=== PATIENT | female | born 1965 | race Caucasian/White ===

== ENCOUNTER 2024-06-17 11:16 | Observation (INO) | payer BC, OTHER ==
--- NOTE | 2024-06-17 12:08 | ERPHSYRPT ---
- History of Present Illness Time Seen by Provider: 06/17/24 12:13 Source: patient Exam Limitations: no limitations Patient Subjective Stated Complaint: pt c/o of blood coming from her rectum w/o a bowel movement, some mild cramping Triage Nursing Assessment: Pt brought to the ER by her , vitals wnl, rates pain/pressure as 3/10 in her lower abdomen, pulses normal, skin n/w/d, no difficulty breathing, doesn't appear to be in any distress Physician History: 58-year-old female presents to emergency department for evaluation of bright red blood per rectum. Patient went to have a bowel movement and she reports bright red blood no stool. Associated symptoms include lower abdominal cramping rated 3 out of 10. Patient declined pain medication. No trauma no fever no nausea no vomiting no rash. Patient resting comfortably no active bleeding at this time. at bedside. They voiced no other complaints or concerns at this time. Patient's last colonoscopy was proximately 2 years ago Portions of this note were created with voice recognition technology. There may be grammatical, spelling, punctuation or sound alike errors Timing/Duration: today Severity: moderate Modifying Factors: Improves With: nothing Associated Symptoms: denies symptoms Allergies/Adverse Reactions: cephalexin [From Keflex] Allergy (Verified 06/17/24 11:52) naproxen Allergy (Verified 06/17/24 11:52) Penicillins Allergy (Verified 06/17/24 11:52) Home Medications: Lansoprazole 30 mg PO DAILY 06/17/24 [History] Levothyroxine Sodium 75 Mcg [Synthroid 75 Mcg] 75 mcg PO DAILY 06/17/24 [History] Montelukast Sodium 10 mg [Singulair 10 MG] 10 mg PO DAILY 06/17/24 [History] Hx Influenza Vaccination/Date Given: No Hx Pneumococcal Vaccination/Date Given: No Travel Risk - International Travel Have you traveled outside of the country in past 3 weeks: No - Emerging Infectious Disease Are you exhibiting symptoms associated with any current EIDs: Yes Symptoms: Abdominal Pain - Review of Systems Constitutional: No Symptoms, No Fever, No Chills Eyes: No Symptoms Ears, Nose, & Throat: No Symptoms Respiratory: No Symptoms, No Cough, No Dyspnea Cardiac: No Symptoms, No Chest Pain, No Edema, No Syncope Abdominal/Gastrointestinal: No Symptoms, No Abdominal Pain, No Nausea, No Vomiting, No Diarrhea Genitourinary Symptoms: No Symptoms, No Dysuria Musculoskeletal: No Symptoms, No Back Pain, No Neck Pain Skin: No Symptoms, No Rash Neurological: No Symptoms, No Dizziness, No Focal Weakness, No Sensory Changes Psychological: No Symptoms Endocrine: No Symptoms Hematologic/Lymphatic: No Symptoms Immunological/Allergic: No Symptoms All Other Systems: Reviewed and Negative - Past Medical History Pertinent Past Medical History: Yes Respiratory History: Asthma Endocrine Medical History: Hypothyroidism Musculoskeletal History: Fractures Other Medical History: excema - Past Surgical History Past Surgical History: Yes Female Surgical History: Hysterectomy, Tubal Ligation - Social History Smoking Status: Never smoker Exposure to second hand smoke: No Drug Use: none - Social Determinants of Health Will the patient participate in the screening: Yes Do you worry about a steady place to live?: No Do you have any problems with any of the following?: No known problems In the past 12 months,have you had to go without utilities?: No Transportation Issues: No Has anyone in your support network made you feel unsafe?: No Have you or anyone in your house had to go without enough: No - Nursing Vital Signs Nursing Vital Signs: Initial Vital Signs Temperature 97.1 F 06/17/24 11:41 Pulse Rate 64 06/17/24 11:41 Blood Pressure 134/82 06/17/24 11:41 O2 Sat by Pulse Oximetry 97 06/17/24 11:41 Pain Scale Pain Intensity 3 - Physical Exam General Appearance: no apparent distress, alert Eye Exam: PERRL/EOMI, eyes nml inspection Ears, Nose, Throat Exam: normal ENT inspection, moist mucous membranes Neck Exam: normal inspection, full range of motion Respiratory Exam: normal breath sounds, lungs clear, airway intact, No respiratory distress Cardiovascular Exam: regular rate/rhythm, normal heart sounds, normal peripheral pulses Gastrointestinal/Abdomen Exam: soft, normal bowel sounds, tenderness (Tenderness to palpation left lower abdomen), No mass Back Exam: normal inspection, normal range of motion, No CVA tenderness, No vertebral tenderness Extremity Exam: normal inspection, normal range of motion, pelvis stable Neurologic Exam: alert, oriented x 3, cooperative, normal mood/affect, sensation nml, No motor deficits Skin Exam: normal color, warm, dry, No rash Lymphatic Exam: No adenopathy SpO2 Interpretation: normal SpO2: 97 O2 Delivery: Room Air - Course Nursing assessment & vital signs reviewed: Yes - CT Exams Abdomen/Pelvis CT Interpretation: Tele-radiologist Report (Sigmoid colitis with associated fat stranding) Ordered Tests: Active Orders 24 hr Category Date Time Status ABDOMEN AND PELVIS W CONTRAST [CT] Stat Exams 06/17/24 12:05 Completed CBC W DIFF Stat Lab 06/17/24 12:21 Completed CMP Stat Lab 06/17/24 12:21 Completed PROTIME WITH INR Stat Lab 06/17/24 15:07 Ordered PTT Stat Lab 06/17/24 15:07 Ordered UA W/RFX UR CULTURE Stat Lab 06/17/24 12:15 Completed Medication Summary Generic Name Dose Route Start Last Admin Trade Name Freq PRN Reason Stop Dose Admin Levofloxacin/Dextrose 500 mg in 100 mls @ 100 mls/hr 06/17/24 14:54 Levofloxacin 500mg/100ml D5w IV 06/17/24 15:53 STAT STA Metronidazole 500 mg in 100 mls @ 200 mls/hr 06/17/24 14:54 Flagyl 500 Mg Ivpb IV 06/17/24 15:23 STAT STA Discontinued Medications Generic Name Dose Route Start Last Admin Trade Name Freq PRN Reason Stop Dose Admin Metronidazole Confirm 06/17/24 15:01 Flagyl 500 Mg Ivpb Administered 06/17/24 15:02 Dose 500 mg in 100 mls @ ud IV .STK-MED ONE Pantoprazole Sodium 40 mg 06/17/24 14:55 Pantoprazole 40 Mg Vial IV 06/17/24 14:56 STAT ONE Pantoprazole Sodium Confirm 06/17/24 15:01 Pantoprazole 40 Mg Vial Administered 06/17/24 15:02 Dose 40 mg IV .STK-MED ONE Lab/Rad Data: Laboratory Result Diagrams 06/17/24 12:21 06/17/24 12:21 Laboratory Results 06/17/24 06/17/24 06/17/24 Range/Units 12:21 12:21 12:15 WBC 14.1 H (3.98-10.04) x10^3/uL RBC 5.03 (3.93-5.22) x10^6/uL Hgb 15.1 (11.2-15.7) g/dL Hct 44.0 (34.1-44.9) % MCV 87.5 (79.4-94.8) fL MCH 30.0 (25.6-32.2) pg MCHC 34.3 (32.2-35.5) g/dL RDW 12.4 (11.7-14.4) % Plt Count 242 (182-369) x10^3/uL MPV 12.2 (9.4-12.3) fL Gran % 66.1 (34.0-71.1) % Immature Gran % (Auto) 0.4 (0.001-0.429) % Nucleat RBC Rel Count 0.0 (0.00-0.2) % Eos # (Auto) 0.07 (0.04-0.36) x10^3/uL Immature Gran # (Auto) 0.05 H (0.001-0.031) x10^3u/L Absolute Lymphs (auto) 3.03 (1.18-3.74) x10^3/uL Absolute Monos (auto) 1.55 H (0.24-0.86) x10^3/uL Absolute Nucleated RBC 0.00 (0.00-0.012) x10^3u/L Lymphocytes % 21.5 (19.3-51.7) % Monocytes % 11.0 (4.7-12.5) % Eosinophils % 0.5 L (0.7-5.8) % Basophils % 0.5 (0.1-1.2) % Absolute Granulocytes 9.32 H (1.56-6.13) x10^3/uL Basophils # 0.07 (0.01-0.08) x10^3/uL Sodium 138 (135-145) mmol/L Potassium 3.6 (3.5-5.1) mmol/L Chloride 102 (98-107) mmol/L Carbon Dioxide 26 (22-30) mmol/L Anion Gap 12.8 (5-15) MEQ/L BUN 13 (7-17) mg/dL Creatinine 0.79 (0.52-1.04) mg/dL Estimated GFR 85.6 ML/MIN Glucose 93 (74-106) mg/dL Calcium 8.9 (8.4-10.2) mg/dL Total Bilirubin 1.30 (0.2-1.3) mg/dL AST 21 (14-36) U/L ALT 15 (0-35) U/L Alkaline Phosphatase 115 (38-126) U/L Serum Total Protein 7.3 (6.3-8.2) g/dL Albumin 4.4 (3.5-5.0) g/dL Urine Color Yellow (Yellow) Urine Appearance Clear (Clear) Urine pH 6.0 (4.6-8.0) Ur Specific [place] 1.010 (1.005-1.030) Urine Protein Negative (Negative) Urine Glucose (UA) Negative (Negative) mg/dL Urine Ketones Negative (Negative) Urine Blood Negative (Negative) Urine Nitrite Negative (Negative) Urine Bilirubin Negative (Negative) Urine Urobilinogen 0.2 (0.2) mg/dL Ur Leukocyte Esterase Negative (Negative) U Hyaline Cast (Auto) NONE SEEN (0-2) /LPF Urine Microscopic RBC 0-2 (0-5) /HPF Urine Microscopic WBC 0-2 (0-5) /HPF Ur Epithelial Cells Rare (None Seen) /HPF Urine Bacteria None Seen (None Seen) /HPF Urine Culture Reflexed NO (NO) Slides for Path Review YES - Progress Progress: improved Progress Note: 58-year-old female presents to our ED for evaluation of bright red blood per rectum. Physical exam reveals some lower abdominal tenderness. Patient declined pain medication. CT abdomen pelvis reveals a inflamed colon with associated fat stranding. Patient is allergic to penicillin. Levaquin and Flagyl ordered. Protonix administered as well. Due to the rectal bleeding patient will be admitted overnight for observation. Plan of care discussed with patient. She agrees to admission at [facility] for further evaluation and treatment. Portions of this note were created with voice recognition technology. There may be grammatical, spelling, punctuation or sound alike errors Complexity of problem addressed is moderate acute complicated. No critical care time. Complex of data reviewed and analyzed is extensive. Test ordered test reviewed results analyzed and correlated clinically with history and physical exam. Management discussed with hospitalist who accepts admission to observation at 3:02 PM. Risk of complication and or risk of morbidity/mortality of patient management is high. Patient requires hospitalization for further evaluation and treatment. Vital stable time spent admit patient approximately 15 minutes. Plan of care established for shared decision making. No social determinants of health present to impede follow-up. Portions of this note were created with voice recognition technology. There may be grammatical, spelling, punctuation or sound alike errors 06/17/24 15:03 Counseled pt/family regarding: lab results, diagnosis, rad results - Departure Departure Disposition: Observation Clinical Impression: Lung nodule, Sigmoid colitis, Rectal bleeding, Abdominal pain, Leukocytosis Condition: Stable Critical Care Time: No Referrals: DOCTOR,NO FAMILY [Primary Care Provider] - Follow up/PCP as directed
[2024-06-17 12:22] LABS: Appearance Clear (Clear); Bacteria None Seen /HPF (None Seen); Bilirubin Negative (Negative); Blood Negative (Negative); Epithelial Cells Rare /HPF (None Seen); Glucose, Urine Negative (Negative); Hyaline Casts NONE SEEN /LPF (0-2); Ketones Negative (Negative); Leukocyte Esterase Negative (Negative); Nitrite Negative (Negative); Protein,Urine Dip Negative (Negative); RBC 0-2 /HPF (0-5); Urobilinogen 0.2 mg/dL (0.2); WBC 0-2 /HPF (0-5)
[2024-06-17 12:34] LABS: Absolute Neutrophil Ct (ANC) 9.32 x10^3/uL (1.56-6.13); BASOPHIL % 0.5 % (0.1-1.2); Basophil (Absolute #) 0.07 x10^3/uL (0.01-0.08); Eosinophil % 0.5 % (0.7-5.8); Eosinophil (Absolute #) 0.07 x10^3/uL (0.04-0.36); Hemoglobin 15.1 g/dL (11.2-15.7); IMMATURE GRAN # 0.05 x10^3u/L (0.001-0.031); IMMATURE GRAN % 0.4 % (0.001-0.429); Lymphocyte (Absolute #) 3.03 x10^3/uL (1.18-3.74); Lymphocytes % 21.5 % (19.3-51.7); Mean Cell Volume 87.5 fL (79.4-94.8); Mean Corpuscular Hgb Concent. 34.3 g/dL (32.2-35.5); Mean Platelet Volume 12.2 fL (9.4-12.3); Monocyte (Absolute #) 1.55 x10^3/uL (0.24-0.86); Neutrophil % 66.1 % (34.0-71.1); Platelet Count 242 x10^3/uL (182-369); Red Blood Count 5.03 x10^6/uL (3.93-5.22); Red Cell Distribution Width 12.4 % (11.7-14.4); White Blood Count 14.1 x10^3/uL (3.98-10.04)
[2024-06-17 12:52] LABS: ALBUMIN 4.4 g/dL (3.5-5.0); ANION GAP 12.8 MEQ/L (5-15); BILIRUBIN,TOTAL 1.3 mg/dL (0.2-1.3); Calcium 8.9 mg/dL (8.4-10.2); Creatinine 1 0.79 mg/dL (0.52-1.04); EST GLOMERULAR FILTRATION RATE 85.6 ML/MIN; Potassium 3.6 mmol/L (3.5-5.1); Total Protein 7.3 g/dL (6.3-8.2)
[2024-06-17 14:04] LABS: Slide Review 1 YES
--- NOTE | 2024-06-17 14:32 | XRAY ---
Indication: Abdominal pain. Multiple contiguous axial images obtained through the abdomen and pelvis using 80 cc Isovue 370 contrast. Comparison: None Lung bases clear of infiltrate or effusion. Indeterminant 5 mm subpleural right middle lobe noncalcified nodule. Heart not enlarged. Noncontrasted stomach and bowel loops appear nonobstructed with normal appendix. Mild diffuse scattered colonic fecal debris. Mid sigmoid demonstrates focal mild circumferential wall thickening with stranding favoring inflammatory process such as colitis. Mass not completely excluded. Previous hysterectomy. No free fluid/air. Remaining liver, gallbladder, pancreas, spleen, adrenal glands, kidneys, ureters, and bladder are unremarkable. Minimal aortic calcifications. No AAA or pathologic retroperitoneal lymphadenopathy. Osseous structures intact with minimal degenerative changes throughout thoracolumbar spine and mild dextroscoliosis centered at L1. Impression: 1. Focal bowel wall thickening mid sigmoid colon with stranding favoring colitis. Mass not completely excluded. 2. 5 mm indeterminate right middle lobe noncalcified nodule. 3. Multilevel degenerative spondylosis and dextroscoliosis.
[2024-06-17] MEDS ORDERED: PROTONIX 40 MG IV IV ONE (15:01)
[2024-06-17] MEDS ORDERED: FLAGYL 500 MG IVPB 500 MG/100 ML BAG IV ONE (15:01)
[2024-06-17] MEDS: PROTONIX 40 MG IV IV ONE (15:12)
[2024-06-17] MEDS: FLAGYL 500 MG IVPB 500 MG/100 ML BAG IV STA (15:13)
[2024-06-17 15:23] LABS: INR 0.99 (0.8-3.0); PROTIME 10.8 SECONDS (9.4-12.5); PTT 28.8 SECONDS (25.1-36.5)
[2024-06-17] MEDS: Levofloxacin 500MG/100ML D5W 500 MG/100 ML BAG IV STA (15:57)
[2024-06-17] MEDS ORDERED: Levofloxacin 500MG/100ML D5W 500 MG/100 ML BAG IV ONE (15:57)
--- NOTE | 2024-06-17 16:34 | PCM.HP ---
History of Present Illness - Chief Complaint Chief Complaint: Rectal bleed Date: 06/17/24 History of Present Illness: is a 58 year old female with a pmhx of asthma, arthritis, IBS, and hypothyroidism who presented to ED 06/17/24 with complaint of rectal bleeding. Patient reports that over the past two days she has been experiencing low abdominal pain which she describes as dull/aching, 3/10 on numerical pain scale, intermittent with movement as an aggravating factor. She has also been experiencing nausea and subjective fevers/chills. Today when she went to the bathroom she noticed bright red blood when she wiped. She does report h/o rectal fissure 25 years ago. Colonoscopy 2 years ago with a small polyp otherwise normal. Denies cough, sob, cp, trauma, [place], dizziness V/D. No recent changes in bowel patterns. Upon arrival to ED vitals stable. CT abdomen and pelvis demonstrating Focal bowel wall thickening mid sigmoid colon with stranding favoring colitis. Mass not completely excluded. 5 mm indeterminate right middle lobe noncalcified nodule. Lab findings remarkable for leukocytosis. Patient given levaquin, protonix, and flagyl in ED. - Review of Systems Constitutional: Fever, Chills Eyes: No Symptoms Ears, Nose, & Throat: No Symptoms Respiratory: No Symptoms Cardiac: No Symptoms Abdominal/Gastrointestinal: Abdominal Pain, Nausea Genitourinary Symptoms: No Symptoms Musculoskeletal: No Symptoms Skin: No Symptoms Neurological: No Symptoms Psychological: No Symptoms Endocrine: No Symptoms Hematologic/Lymphatic: No Symptoms Immunological/Allergic: No Symptoms Medications & Allergies Home Medications: Home Medication List Lansoprazole 30 mg PO DAILY 06/17/24 [History Confirmed 06/17/24] Levothyroxine Sodium 75 Mcg [Synthroid 75 Mcg] 75 mcg PO DAILY 06/17/24 [History Confirmed 06/17/24] Montelukast Sodium 10 mg [Singulair 10 MG] 10 mg PO DAILY 06/17/24 [History Confirmed 06/17/24] Allergies/Adverse Reactions: Allergies Allergy/AdvReac Type Severity Reaction Status Date / Time cephalexin [From Keflex] Allergy Verified 06/17/24 11:52 naproxen Allergy Verified 06/17/24 11:52 Penicillins Allergy Verified 06/17/24 11:52 - Past Medical History Past Medical History: Yes Respiratory History: Asthma Endocrine Medical History: Hypothyroidism Musculoskelatal History: Arthritis, Fractures GI Medical History: Other (IBS/ rectal fissure 25 years ago) Comment: excema - Past Surgical History Past Surgical History: Yes Female Surgical History: Hysterectomy, Tubal Ligation, Other (bladder sling) Significant Family History: heart disease, diabetes - Social History Smoking Status: Never smoker Exposure to second hand smoke: No Alcohol: Occasionally Drug Use: none - Social Determinants of Health Will the patient participate in the screening: Yes Do you worry about a steady place to live?: No Do you have any problems with any of the following?: No known problems In the past 12 months,have you had to go without utilities?: No Have you or anyone in your house had to go without enough: No Transportation Issues: No Has anyone in your support network made you feel unsafe?: No - Physical Exam Vital Signs: Vital Signs - 24 hr Temp Pulse BP BP Pulse Ox 06/17/24 15:13 97 06/17/24 15:00 142/95 99 06/17/24 14:35 133/83 99 06/17/24 14:34 98 06/17/24 13:00 133/86 96 06/17/24 12:30 123/75 97 06/17/24 12:00 128/87 96 06/17/24 11:41 97.1 F 64 134/82 97 General Appearance: no apparent distress Neurologic Exam: alert, oriented x 3, cooperative Eye Exam: PERRL/EOMI Ears, Nose, Throat Exam: normal ENT inspection Neck Exam: normal inspection Respiratory Exam: normal breath sounds, lungs clear Cardiovascular Exam: regular rate/rhythm, normal heart sounds Gastrointestinal/Abdomen Exam: soft, normal bowel sounds, tenderness (LLQ) Pelvic Exam: not done Rectal Exam: deferred Back Exam: normal inspection Extremity Exam: normal inspection Skin Exam: normal color Results - Labs Lab/Micro Results: Lab Results-Last 24 Hours 06/17/24 06/17/24 06/17/24 Range/Units 12:15 12:21 12:21 WBC 14.1 H (3.98-10.04) x10^3/uL RBC 5.03 (3.93-5.22) x10^6/uL Hgb 15.1 (11.2-15.7) g/dL Hct 44.0 (34.1-44.9) % MCV 87.5 (79.4-94.8) fL MCH 30.0 (25.6-32.2) pg MCHC 34.3 (32.2-35.5) g/dL RDW 12.4 (11.7-14.4) % Plt Count 242 (182-369) x10^3/uL MPV 12.2 (9.4-12.3) fL Gran % 66.1 (34.0-71.1) % Immature Gran % (Auto) 0.4 (0.001-0.429) % Nucleat RBC Rel Count 0.0 (0.00-0.2) % Eos # (Auto) 0.07 (0.04-0.36) x10^3/uL Immature Gran # (Auto) 0.05 H (0.001-0.031) x10^3u/L Absolute Lymphs (auto) 3.03 (1.18-3.74) x10^3/uL Absolute Monos (auto) 1.55 H (0.24-0.86) x10^3/uL Absolute Nucleated RBC 0.00 (0.00-0.012) x10^3u/L Lymphocytes % 21.5 (19.3-51.7) % Monocytes % 11.0 (4.7-12.5) % Eosinophils % 0.5 L (0.7-5.8) % Basophils % 0.5 (0.1-1.2) % Absolute Granulocytes 9.32 H (1.56-6.13) x10^3/uL Basophils # 0.07 (0.01-0.08) x10^3/uL PT (9.4-12.5) SECONDS INR (0.8-3.0) APTT (25.1-36.5) SECONDS Sodium 138 (135-145) mmol/L Potassium 3.6 (3.5-5.1) mmol/L Chloride 102 (98-107) mmol/L Carbon Dioxide 26 (22-30) mmol/L Anion Gap 12.8 (5-15) MEQ/L BUN 13 (7-17) mg/dL Creatinine 0.79 (0.52-1.04) mg/dL Estimated GFR 85.6 ML/MIN Glucose 93 (74-106) mg/dL Calcium 8.9 (8.4-10.2) mg/dL Total Bilirubin 1.30 (0.2-1.3) mg/dL AST 21 (14-36) U/L ALT 15 (0-35) U/L Alkaline Phosphatase 115 (38-126) U/L Serum Total Protein 7.3 (6.3-8.2) g/dL Albumin 4.4 (3.5-5.0) g/dL Urine Color Yellow (Yellow) Urine Appearance Clear (Clear) Urine pH 6.0 (4.6-8.0) Ur Specific [place] 1.010 (1.005-1.030) Urine Protein Negative (Negative) Urine Glucose (UA) Negative (Negative) mg/dL Urine Ketones Negative (Negative) Urine Blood Negative (Negative) Urine Nitrite Negative (Negative) Urine Bilirubin Negative (Negative) Urine Urobilinogen 0.2 (0.2) mg/dL Ur Leukocyte Esterase Negative (Negative) U Hyaline Cast (Auto) NONE SEEN (0-2) /LPF Urine Microscopic RBC 0-2 (0-5) /HPF Urine Microscopic WBC 0-2 (0-5) /HPF Ur Epithelial Cells Rare (None Seen) /HPF Urine Bacteria None Seen (None Seen) /HPF Urine Culture Reflexed NO (NO) Slides for Path Review YES 06/17/24 Range/Units 12:21 WBC (3.98-10.04) x10^3/uL RBC (3.93-5.22) x10^6/uL Hgb (11.2-15.7) g/dL Hct (34.1-44.9) % MCV (79.4-94.8) fL MCH (25.6-32.2) pg MCHC (32.2-35.5) g/dL RDW (11.7-14.4) % Plt Count (182-369) x10^3/uL MPV (9.4-12.3) fL Gran % (34.0-71.1) % Immature Gran % (Auto) (0.001-0.429) % Nucleat RBC Rel Count (0.00-0.2) % Eos # (Auto) (0.04-0.36) x10^3/uL Immature Gran # (Auto) (0.001-0.031) x10^3u/L Absolute Lymphs (auto) (1.18-3.74) x10^3/uL Absolute Monos (auto) (0.24-0.86) x10^3/uL Absolute Nucleated RBC (0.00-0.012) x10^3u/L Lymphocytes % (19.3-51.7) % Monocytes % (4.7-12.5) % Eosinophils % (0.7-5.8) % Basophils % (0.1-1.2) % Absolute Granulocytes (1.56-6.13) x10^3/uL Basophils # (0.01-0.08) x10^3/uL PT 10.8 (9.4-12.5) SECONDS INR 0.99 (0.8-3.0) APTT 28.8 (25.1-36.5) SECONDS Sodium (135-145) mmol/L Potassium (3.5-5.1) mmol/L Chloride (98-107) mmol/L Carbon Dioxide (22-30) mmol/L Anion Gap (5-15) MEQ/L BUN (7-17) mg/dL Creatinine (0.52-1.04) mg/dL Estimated GFR ML/MIN Glucose (74-106) mg/dL Calcium (8.4-10.2) mg/dL Total Bilirubin (0.2-1.3) mg/dL AST (14-36) U/L ALT (0-35) U/L Alkaline Phosphatase (38-126) U/L Serum Total Protein (6.3-8.2) g/dL Albumin (3.5-5.0) g/dL Urine Color (Yellow) Urine Appearance (Clear) Urine pH (4.6-8.0) Ur Specific [place] (1.005-1.030) Urine Protein (Negative) Urine Glucose (UA) (Negative) mg/dL Urine Ketones (Negative) Urine Blood (Negative) Urine Nitrite (Negative) Urine Bilirubin (Negative) Urine Urobilinogen (0.2) mg/dL Ur Leukocyte Esterase (Negative) U Hyaline Cast (Auto) (0-2) /LPF Urine Microscopic RBC (0-5) /HPF Urine Microscopic WBC (0-5) /HPF Ur Epithelial Cells (None Seen) /HPF Urine Bacteria (None Seen) /HPF Urine Culture Reflexed (NO) Slides for Path Review - Radiology Impressions Radiology Exams & Impressions: Radiology Procedures Category Date Time Status ABDOMEN AND PELVIS W CONTRAST [CT] Stat Exams 06/17/24 12:05 Completed Assessment/Plan (1) Colitis Current Visit: Yes Status: Acute Assessment & Plan: -CT reviewed demonstrating Focal bowel wall thickening mid sigmoid colon with stranding favoring colitis. Mass not completely excluded. -Levaquin and flagyl started in ED will continue -CLD -IVF -supportive care with anti-emectics/pain control Code(s): K52.9 - NONINFECTIVE GASTROENTERITIS AND COLITIS, UNSPECIFIED (2) Rectal bleeding Current Visit: Yes Status: Acute Assessment & Plan: -Most likely secondary to colitis -last colonoscopy 2 year ago - no abnormal findings -Refer to GI as OP for colonoscopy - if bleeding persists consider GS consult while IP -Hgb reviewed at 15.1- stable- monitor closely -transfuse if hgb less than 7 -Protonix BID Code(s): K62.5 - HEMORRHAGE OF ANUS AND RECTUM (3) Leukocytosis Current Visit: Yes Status: Acute Assessment & Plan: -Most likely secondary to colitis- see plan -UA negative Code(s): D72.829 - ELEVATED WHITE BLOOD CELL COUNT, UNSPECIFIED (4) Lung nodule Current Visit: Yes Status: Acute Assessment & Plan: -5 mm indeterminate right middle lobe noncalcified nodule - known to patient - h/o histoplasmosis -has had ct surveillance in the past - will follow up OP Code(s): R91.1 - SOLITARY PULMONARY NODULE (5) Hypothyroid Current Visit: Yes Status: Acute Assessment & Plan: -continue home meds VTE: SCD PPI protonix Dispo: 1-2 days Code(s): E03.9 - HYPOTHYROIDISM, UNSPECIFIED
[2024-06-17] MEDS ORDERED: TYLENOL 325 MG PO PRN (16:51)
[2024-06-17] MEDS ORDERED: Zofran 4 MG/2 ML VIAL IV PRN (16:51)
[2024-06-17] MEDS: Sodium Chloride 0.9% 1000 ML 1,000 ML IV SCH (17:27)
[2024-06-17] MEDS: FLAGYL 500 MG IVPB 500 MG/100 ML BAG IV SCH (20:49)
[2024-06-17] MEDS: PROTONIX 40 MG IV IV SCH (21:29)
[2024-06-18 05:25] LABS: BASOPHIL % 0.4 % (0.1-1.2); Basophil (Absolute #) 0.04 x10^3/uL (0.01-0.08); Eosinophil % 1.2 % (0.7-5.8); Eosinophil (Absolute #) 0.13 x10^3/uL (0.04-0.36); Hematocrit 39.1 % (34.1-44.9); Hemoglobin 13.6 g/dL (11.2-15.7); IMMATURE GRAN # 0.03 x10^3u/L (0.001-0.031); IMMATURE GRAN % 0.3 % (0.001-0.429); Lymphocyte (Absolute #) 2.17 x10^3/uL (1.18-3.74); Lymphocytes % 20.6 % (19.3-51.7); Mean Cell Volume 86.7 fL (79.4-94.8); Mean Corpuscular Hemoglobin 30.2 pg (25.6-32.2); Mean Corpuscular Hgb Concent. 34.8 g/dL (32.2-35.5); Mean Platelet Volume 12.3 fL (9.4-12.3); Monocyte (Absolute #) 0.98 x10^3/uL (0.24-0.86); Monocytes % 9.3 % (4.7-12.5); Neutrophil % 68.2 % (34.0-71.1); Platelet Count 228 x10^3/uL (182-369); Red Blood Count 4.51 x10^6/uL (3.93-5.22); Red Cell Distribution Width 12.5 % (11.7-14.4); White Blood Count 10.6 x10^3/uL (3.98-10.04)
[2024-06-18 05:30] LABS: ALBUMIN 3.9 g/dL (3.5-5.0); ANION GAP 11.3 MEQ/L (5-15); BILIRUBIN,TOTAL 1.1 mg/dL (0.2-1.3); Calcium 8.5 mg/dL (8.4-10.2); Creatinine 1 0.67 mg/dL (0.52-1.04); Potassium 3.6 mmol/L (3.5-5.1); Total Protein 6.6 g/dL (6.3-8.2)
[2024-06-18 07:39] VITALS: RESP 16
[2024-06-18] MEDS: Singulair 10 MG PO SCH (09:36)
[2024-06-18] MEDS: SYNTHROID 75 MCG PO SCH (09:36)
[2024-06-18] MEDS ORDERED: NON-FORMULARY ITEM (Lansoprazole [Lansoprazole] 30 MG Capsule.Dr) PO SCH (10:00)
[2024-06-18] MEDS: LEVOFLOXACIN 750MG/150ML D5W 750 MG/150 ML BAG IV SCH (11:58)
--- NOTE | 2024-06-18 13:36 | PCM.NOTE ---
Date and Time: 06/18/24 1330 Subjective Assessment: is a 58 year old female with a pmhx of asthma, arthritis, IBS, and hypothyroidism who presented to ED 06/17/24 with complaint of rectal bleeding. Patient reports that over the past two days she has been experiencing low abdominal pain which she describes as dull/aching, 3/10 on numerical pain scale, intermittent with movement as an aggravating factor. She has also been experiencing nausea and subjective fevers/chills. Today when she went to the bathroom she noticed bright red blood when she wiped. She does report h/o rectal fissure 25 years ago. Colonoscopy 2 years ago with a small polyp otherwise normal. Denies cough, sob, cp, trauma, LARSON, dizziness V/D. No recent changes in bowel patterns. Upon arrival to ED vitals stable. CT abdomen and pelvis demonstrating Focal bowel wall thickening mid sigmoid colon with stranding favoring colitis. Mass not completely excluded. 5 mm indeterminate right middle lobe noncalcified nodule. Lab findings remarkable for leukocytosis. Patient given levaquin, protonix, and flagyl in ED. 06/18/24: Patient endorses BM with BRB last night. Abdominal pain unchanged. No N/V. No fever. Hgb stable at 13.6. Will consult surgery for eval of rectal bleeding. Continue levaquin/flagyl. CLD until surgery sees patient. - Review of Systems Constitutional: No Symptoms Eyes: No Symptoms Ears, Nose, & Throat: No Symptoms Respiratory: No Symptoms Cardiac: No Symptoms Abdominal/Gastrointestinal: Abdominal Pain, Hematochezia Genitourinary Symptoms: No Symptoms Musculoskeletal: No Symptoms Skin: No Symptoms Neurological: No Symptoms Psychological: No Symptoms Endocrine: No Symptoms Hematologic/Lymphatic: No Symptoms Immunological/Allergic: No Symptoms Objective Exam General Appearance: no apparent distress Neurologic Exam: alert, oriented x 3, cooperative Skin Exam: normal color Eye Exam: PERRL Ears, Nose, Throat Exam: normal ENT inspection Neck Exam: normal inspection Respiratory Exam: normal breath sounds, lungs clear Cardiovascular Exam: regular rate/rhythm, normal heart sounds Gastrointestinal/Abdomen Exam: soft, normal bowel sounds, tenderness (LLQ) Extremity Exam: normal inspection Back Exam: normal inspection Pelvic Exam: deferred Rectal Exam: deferred Objective Data Vital Signs: Vital Signs - 24 hr Temp Pulse Resp BP BP Pulse Ox 06/18/24 11:51 98.3 F 63 16 135/80 93 L 06/18/24 07:38 98.2 F 62 16 145/80 95 06/18/24 04:00 97.1 F 67 17 121/76 97 06/18/24 00:00 97.4 F 58 L 17 159/82 96 06/17/24 20:00 97.2 F 58 L 17 137/80 96 06/17/24 16:46 97.5 F 65 12 137/89 96 06/17/24 15:13 97 06/17/24 15:00 142/95 99 06/17/24 14:35 133/83 99 06/17/24 14:34 98 Pain Assessment - Last Documented Pain Intensity 0 Intake and Output: Intake & Output 06/16/24 06/17/24 06/18/24 06/19/24 11:59 11:59 11:59 11:59 Intake Total 1202 Balance 1202 Weight 77.111 kg 76.2 kg Lab Results: Lab Results-Last 24 Hours 06/17/24 06/17/24 06/18/24 Range/Units 12:21 12:21 05:07 WBC 10.6 H (3.98-10.04) x10^3/uL RBC 4.51 (3.93-5.22) x10^6/uL Hgb 13.6 (11.2-15.7) g/dL Hct 39.1 (34.1-44.9) % MCV 86.7 (79.4-94.8) fL MCH 30.2 (25.6-32.2) pg MCHC 34.8 (32.2-35.5) g/dL RDW 12.5 (11.7-14.4) % Plt Count 228 (182-369) x10^3/uL MPV 12.3 (9.4-12.3) fL Gran % 68.2 (34.0-71.1) % Immature Gran % (Auto) 0.3 (0.001-0.429) % Nucleat RBC Rel Count 0.0 (0.00-0.2) % Eos # (Auto) 0.13 (0.04-0.36) x10^3/uL Immature Gran # (Auto) 0.03 (0.001-0.031) x10^3u/L Absolute Lymphs (auto) 2.17 (1.18-3.74) x10^3/uL Absolute Monos (auto) 0.98 H (0.24-0.86) x10^3/uL Absolute Nucleated RBC 0.00 (0.00-0.012) x10^3u/L Lymphocytes % 20.6 (19.3-51.7) % Monocytes % 9.3 (4.7-12.5) % Eosinophils % 1.2 (0.7-5.8) % Basophils % 0.4 (0.1-1.2) % Absolute Granulocytes 7.20 H (1.56-6.13) x10^3/uL Basophils # 0.04 (0.01-0.08) x10^3/uL PT 10.8 (9.4-12.5) SECONDS INR 0.99 (0.8-3.0) APTT 28.8 (25.1-36.5) SECONDS Sodium (135-145) mmol/L Potassium (3.5-5.1) mmol/L Chloride (98-107) mmol/L Carbon Dioxide (22-30) mmol/L Anion Gap (5-15) MEQ/L BUN (7-17) mg/dL Creatinine (0.52-1.04) mg/dL Estimated GFR ML/MIN Glucose (74-106) mg/dL Calcium (8.4-10.2) mg/dL Total Bilirubin (0.2-1.3) mg/dL AST (14-36) U/L ALT (0-35) U/L Alkaline Phosphatase (38-126) U/L Serum Total Protein (6.3-8.2) g/dL Albumin (3.5-5.0) g/dL Slides for Path Review YES 06/18/24 Range/Units 05:07 WBC (3.98-10.04) x10^3/uL RBC (3.93-5.22) x10^6/uL Hgb (11.2-15.7) g/dL Hct (34.1-44.9) % MCV (79.4-94.8) fL MCH (25.6-32.2) pg MCHC (32.2-35.5) g/dL RDW (11.7-14.4) % Plt Count (182-369) x10^3/uL MPV (9.4-12.3) fL Gran % (34.0-71.1) % Immature Gran % (Auto) (0.001-0.429) % Nucleat RBC Rel Count (0.00-0.2) % Eos # (Auto) (0.04-0.36) x10^3/uL Immature Gran # (Auto) (0.001-0.031) x10^3u/L Absolute Lymphs (auto) (1.18-3.74) x10^3/uL Absolute Monos (auto) (0.24-0.86) x10^3/uL Absolute Nucleated RBC (0.00-0.012) x10^3u/L Lymphocytes % (19.3-51.7) % Monocytes % (4.7-12.5) % Eosinophils % (0.7-5.8) % Basophils % (0.1-1.2) % Absolute Granulocytes (1.56-6.13) x10^3/uL Basophils # (0.01-0.08) x10^3/uL PT (9.4-12.5) SECONDS INR (0.8-3.0) APTT (25.1-36.5) SECONDS Sodium 136 (135-145) mmol/L Potassium 3.6 (3.5-5.1) mmol/L Chloride 105 (98-107) mmol/L Carbon Dioxide 24 (22-30) mmol/L Anion Gap 11.3 (5-15) MEQ/L BUN 10 (7-17) mg/dL Creatinine 0.67 (0.52-1.04) mg/dL Estimated GFR 100.0 ML/MIN Glucose 108 H (74-106) mg/dL Calcium 8.5 (8.4-10.2) mg/dL Total Bilirubin 1.10 (0.2-1.3) mg/dL AST 19 (14-36) U/L ALT 13 (0-35) U/L Alkaline Phosphatase 108 (38-126) U/L Serum Total Protein 6.6 (6.3-8.2) g/dL Albumin 3.9 (3.5-5.0) g/dL Slides for Path Review Radiology Exams: Radiology Procedures Category Date Time Status ABDOMEN AND PELVIS W CONTRAST [CT] Stat Exams 06/17/24 12:05 Completed Assessment/Plan (1) Colitis Current Visit: Yes Status: Acute Assessment & Plan: -CT reviewed demonstrating Focal bowel wall thickening mid sigmoid colon with stranding favoring colitis. Mass not completely excluded. -Levaquin and flagyl started in ED will continue -CLD -IVF -supportive care with anti-emectics/pain control 06/18/24: -continue CLD and abx Code(s): K52.9 - NONINFECTIVE GASTROENTERITIS AND COLITIS, UNSPECIFIED (2) Rectal bleeding Current Visit: Yes Status: Acute Assessment & Plan: -Most likely secondary to colitis -last colonoscopy 2 year ago - no abnormal findings -Refer to GI as OP for colonoscopy - if bleeding persists consider GS consult while IP -Hgb reviewed at 15.1- stable- monitor closely -transfuse if hgb less than 7 -Protonix BID 06/18/24: -Hgb reviewed at 13.6 -stable -continues to have BRB with BM last night -will consult surgery- appreciate recs Code(s): K62.5 - HEMORRHAGE OF ANUS AND RECTUM (3) Leukocytosis Current Visit: Yes Status: Acute Assessment & Plan: -Most likely secondary to colitis- see plan -UA negative 06/18: -Improving WBC reviewed at 10.6<14.1 Code(s): D72.829 - ELEVATED WHITE BLOOD CELL COUNT, UNSPECIFIED (4) Lung nodule Current Visit: Yes Status: Acute Assessment & Plan: -5 mm indeterminate right middle lobe noncalcified nodule - known to patient - h/o histoplasmosis -has had ct surveillance in the past - will follow up OP Code(s): R91.1 - SOLITARY PULMONARY NODULE (5) Hypothyroid Current Visit: Yes Status: Acute Assessment & Plan: -continue home meds VTE: SCD PPI protonix Dispo: 1-2 days Code(s): K52.9 - NONINFECTIVE GASTROENTERITIS AND COLITIS, UNSPECIFIED (2) Rectal bleeding Current Visit: Yes Status: Acute Code(s): K62.5 - HEMORRHAGE OF ANUS AND REC FAMILIA (3) Leukocytosis Current Visit: Yes Status: Acute Code(s): D72.829 - ELEVATED WHITE BLOOD CELL COUNT, UNSPECIFIED (4) Lung nodule Current Visit: Yes Status: Acute Code(s): R91.1 - SOLITARY PULMONARY NODULE (5) Hypothyroid Current Visit: Yes Status: Acute Code(s): E03.9 - HYPOTHYROIDISM, UNSPECIFIED
[2024-06-18 16:47] VITALS: BP 136/85; PULSE 65; TEMP 98; O2SAT 94
--- NOTE | 2024-06-18 18:23 | PCM.DS ---
Discharge Summary Date of Admission: 06/17/24 16:26 Date of Discharge: 06/18/24 Admitting Physician: JEROME QUINTERO MD Consults: Consults on Case 06/18/24 09:00 Consult Surgery ROUTINE Primary Care Provider: NO FAMILY DOCTOR Allergies Allergies cephalexin [From Keflex] Allergy (Verified 06/17/24 11:52) naproxen Allergy (Verified 06/17/24 11:52) Penicillins Allergy (Verified 06/17/24 11:52) Hospital Summary - Hospital Course Hospital Course: is a 58 year old female with a pmhx of asthma, arthritis, IBS, and hypothyroidism who presented to ED 06/17/24 with complaint of rectal bleeding. Patient reports that over the past two days she has been experiencing low abdominal pain which she describes as dull/aching, 3/10 on numerical pain scale, intermittent with movement as an aggravating factor. She has also been experiencing nausea and subjective fevers/chills. Today when she went to the bathroom she noticed bright red blood when she wiped. She does report h/o rectal fissure 25 years ago. Colonoscopy 2 years ago with a small polyp otherwise normal. Denies cough, sob, cp, trauma, LARSON, dizziness V/D. No recent changes in bowel patterns. Upon arrival to ED vitals stable. CT abdomen and pelvis demonstrating Focal bowel wall thickening mid sigmoid colon with stranding favoring colitis. Mass not completely excluded. 5 mm indeterminate right middle lobe noncalcified nodule. Lab findings remarkable for leukocytosis. Patient given levaquin, protonix, and flagyl in ED. Surgery consulted and evaluated patient - patient requesting discharge home- abdominal pain improved. No n/v. Surgery has cleared for discharge with 7 days of cipro/flagyl. She will follow up OP with surgical team for colonoscopy. Discharge Note New Diagnosis: Colitis New Medications: cipro/flagyl Follow Up: General surgery Latest Assessment & Plan 1) Colitis Current Visit: Yes Status: Acute Assessment & Plan: -CT reviewed demonstrating Focal bowel wall thickening mid sigmoid colon with stranding favoring colitis. Mass not completely excluded. -Levaquin and flagyl started in ED will continue -CLD -IVF -supportive care with anti-emectics/pain control 06/18/24: -continue CLD and abx Code(s): K52.9 - NONINFECTIVE GASTROENTERITIS AND COLITIS, UNSPECIFIED (2) Rectal bleeding Current Visit: Yes Status: Acute Assessment & Plan: -Most likely secondary to colitis -last colonoscopy 2 year ago - no abnormal findings -Refer to GI as OP for colonoscopy - if bleeding persists consider GS consult while IP -Hgb reviewed at 15.1- stable- monitor closely -transfuse if hgb less than 7 -Protonix BID 06/18/24: -Hgb reviewed at 13.6 -stable -continues to have BRB with BM last night -Surgery consulted- patient to discharge home on Cipro/flagyl - colonoscopy as OP Code(s): K62.5 - HEMORRHAGE OF ANUS AND RECTUM (3) Leukocytosis Current Visit: Yes Status: Acute Assessment & Plan: -Most likely secondary to colitis- see plan -UA negative 06/18: -Improving WBC reviewed at 10.6<14.1 Code(s): D72.829 - ELEVATED WHITE BLOOD CELL COUNT, UNSPECIFIED (4) Lung nodule Current Visit: Yes Status: Acute Assessment & Plan: -5 mm indeterminate right middle lobe noncalcified nodule - known to patient -h/ o histoplasmosis -has had ct surveillance in the past - will follow up OP Code(s): R91.1 - SOLITARY PULMONARY NODULE (5) Hypothyroid Current Visit: Yes Status: Acute Assessment & Plan: -continue home meds I spent 35 minutes [id number] with the patient on the day of discharge performing discharge exam, discussing hospital stay and discharge instructions with patient and caregivers, preparation of discharge records, prescriptions & referral forms and addressing any questions/concerns the patient had as documented above. - Vitals & Intake/Output Vital Signs: Vital Signs Temperature 98.0 F 06/18/24 16:00 Pulse Rate 65 06/18/24 16:00 Respiratory Rate 16 06/18/24 16:00 Blood Pressure 136/85 06/18/24 16:00 O2 Sat by Pulse Oximetry 94 L 06/18/24 16:00 Intake & Output: Intake & Output 06/16/24 06/17/24 06/18/24 06/19/24 11:59 11:59 11:59 11:59 Intake Total 1202 480 Balance 1202 480 Weight 77.111 kg 76.2 kg - Lab Result Diagrams: 06/18/24 05:07 06/18/24 05:07 Lab Results-Last 24 Hrs: Lab Results-Last 24 Hours 06/18/24 06/18/24 Range/Units 05:07 05:07 WBC 10.6 H (3.98-10.04) x10^3/uL RBC 4.51 (3.93-5.22) x10^6/uL Hgb 13.6 (11.2-15.7) g/dL Hct 39.1 (34.1-44.9) % MCV 86.7 (79.4-94.8) fL MCH 30.2 (25.6-32.2) pg MCHC 34.8 (32.2-35.5) g/dL RDW 12.5 (11.7-14.4) % Plt Count 228 (182-369) x10^3/uL MPV 12.3 (9.4-12.3) fL Gran % 68.2 (34.0-71.1) % Immature Gran % (Auto) 0.3 (0.001-0.429) % Nucleat RBC Rel Count 0.0 (0.00-0.2) % Eos # (Auto) 0.13 (0.04-0.36) x10^3/uL Immature Gran # (Auto) 0.03 (0.001-0.031) x10^3u/L Absolute Lymphs (auto) 2.17 (1.18-3.74) x10^3/uL Absolute Monos (auto) 0.98 H (0.24-0.86) x10^3/uL Absolute Nucleated RBC 0.00 (0.00-0.012) x10^3u/L Lymphocytes % 20.6 (19.3-51.7) % Monocytes % 9.3 (4.7-12.5) % Eosinophils % 1.2 (0.7-5.8) % Basophils % 0.4 (0.1-1.2) % Absolute Granulocytes 7.20 H (1.56-6.13) x10^3/uL Basophils # 0.04 (0.01-0.08) x10^3/uL Sodium 136 (135-145) mmol/L Potassium 3.6 (3.5-5.1) mmol/L Chloride 105 (98-107) mmol/L Carbon Dioxide 24 (22-30) mmol/L Anion Gap 11.3 (5-15) MEQ/L BUN 10 (7-17) mg/dL Creatinine 0.67 (0.52-1.04) mg/dL Estimated GFR 100.0 ML/MIN Glucose 108 H (74-106) mg/dL Calcium 8.5 (8.4-10.2) mg/dL Total Bilirubin 1.10 (0.2-1.3) mg/dL AST 19 (14-36) U/L ALT 13 (0-35) U/L Alkaline Phosphatase 108 (38-126) U/L Serum Total Protein 6.6 (6.3-8.2) g/dL Albumin 3.9 (3.5-5.0) g/dL - Radiology Exams Ordered Rad Exams-Entire Visit: Radiology Procedures Category Date Time Status ABDOMEN AND PELVIS W CONTRAST [CT] Stat Exams 06/17/24 12:05 Completed Discharge Exam General Appearance: no apparent distress Neurologic Exam: alert, oriented x 3, cooperative Eye Exam: PERRL Ears, Nose, Throat Exam: normal ENT inspection Neck Exam: normal inspection Respiratory Exam: normal breath sounds, lungs clear Cardiovascular Exam: regular rate/rhythm, normal heart sounds Gastrointestinal/Abdomen Exam: soft, normal bowel sounds, tenderness Pelvic Exam: deferred Rectal Exam: deferred Back Exam: normal inspection Extremity Exam: normal inspection Skin Exam: normal color Final Diagnosis/Problem List - Final Discharge Diagnosis/Problem (1) Colitis Current Visit: Yes Status: Acute Code(s): K52.9 - NONINFECTIVE GASTROENTERITIS AND COLITIS, UNSPECIFIED (2) Rectal bleeding Current Visit: Yes Status: Acute Code(s): K62.5 - HEMORRHAGE OF ANUS AND RECTUM (3) Leukocytosis Current Visit: Yes Status: Acute Code(s): D72.829 - ELEVATED WHITE BLOOD CELL COUNT, UNSPECIFIED (4) Lung nodule Current Visit: Yes Status: Acute Code(s): R91.1 - SOLITARY PULMONARY NODULE (5) Hypothyroid Current Visit: Yes Status: Acute Code(s): E03.9 - HYPOTHYROIDISM, UNSPECIFIED - Discharge Discharge Date: 06/18/24 Disposition: Home, Self-Care Condition: Stable Prescriptions: New Ciprofloxacin [Cipro 500 MG] 500 mg PO BID 7 Days #14 tablet Metronidazole 500 mg [Flagyl 500 MG] 500 mg PO BID 7 Days #14 tablet Continue Levothyroxine Sodium 75 Mcg [Synthroid 75 Mcg] 75 mcg PO DAILY Montelukast Sodium 10 mg [Singulair 10 MG] 10 mg PO DAILY Lansoprazole 15 mg PO DAILY Non-Formulary Drug [Non-Formulary Item] 1 cap PO DAILY Follow up with: DOCTOR,NO FAMILY [Primary Care Provider] -
== END 2024-06-18 19:10 | disposition home or self-care (01) ==
LOC: ED 11:16 → MED SURG 16:26
PROVIDERS: ADMIT Internal Medicine; ATTEND Internal Medicine
DX: K52.9 Noninfective gastroenteritis and colitis, unspecified (principal); K62.5 Hemorrhage of anus and rectum; D72.829 Elevated white blood cell count, unspecified; R91.1 Solitary pulmonary nodule; E03.9 Hypothyroidism, unspecified; Z79.899 Other long term (current) drug therapy
CPT/HCPCS: 36415; 74177; 80053; 81001; 85025; 85610; 85730; 96374; 96375; 99285; Q3014; 93268; J1956; A9270-GY; G0378